=== PATIENT | male | born 2000 | race Caucasian/White ===

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

== ENCOUNTER 2019-08-11 13:30 | Emergency (ER) | payer MEDICAID ==
--- OUTSIDE RECORDS SUMMARY | 2019-08-11 14:01 | XMS REPORT | Continuity of Care Document ---
:2000 External Reference #:[id number] Author Name Stanley Pitts M.D. (transmitted by agent of provider Isidra Murcia) Address [address] [place] [address] Care Team Providers Name Role Phone Miguel Kwon MD Care Team Information Business Services Coordinator [phone] Problems Description No Information Available Social History Type Date Description Comments Sex Unknown Tobacco Use Start: Unknown Never Smoked Cigarettes ETOH Use Denies alcohol use Recreational Drug Use Never Used Drugs Allergies, Adverse Reactions, Alerts Active Allergies Reaction Severity Comments Date Dust Mites 06/29/2017 Cats 06/29/2017 Benadryl 06/29/2017 Medications Active Medications SIG Qnty Indications Ordering Provider Date Xyzal Allergy 24HR 1 by mouth every Unknown 5mg day Tablets Klonopin 1 by mouth every 8 Unknown 2mg Tablets hours as needed Lamictal Unknown 25mg Tablets Flonase Allergy 1 intranasal puff Unknown Relief twice a day 50mcg/Act Suspension Fish Oil 1 by mouth every Unknown 1000mg day Capsules Vitamin D3 daily otc Unknown 2000Unit Tablets Depakote as needed Unknown 250mg Tablets DR Melatonin Unknown 5mg Tablets Immunizations Description No Information Available Vital Signs Date Vital Result Comment 07/23/2019 11:27am Weight 184.00 lb Height 72 inches 6'0" BMI (Body Mass Index) 25.0 kg/m2 BP Systolic 125 mmHg BP Diastolic 81 mmHg Heart Rate 70 /min O2 % BldC Oximetry 100 % Body Temperature 97.9 F Pain Level 0 01/15/2019 1:05pm Weight 187.00 lb Height 72 inches 6'0" BMI (Body Mass Index) 25.4 kg/m2 BP Systolic 122 mmHg BP Diastolic 69 mmHg Heart Rate 75 /min O2 % BldC Oximetry 98 % Body Temperature 98.4 F Pain Level 0 Results Description No Information Available Procedures Description No Information Available Medical Devices Description No Information Available Encounters Type Date Location Provider Dx Diagnosis Office Visit 07/23/2019 Main Office tSanley Pitts M.D. H61.23 Impacted cerumen, 11:00a bilateral J31.0 Chronic rhinitis Assessments Date Code Description Provider 07/23/2019 H61.23 Impacted cerumen, bilateral Stanley Pitts M.D. 07/23/2019 J31.0 Chronic rhinitis Stanley Pitts M.D. Plan of Treatment Future Appointment(s):01/21/2020 2:15 pm - Stanley Pitts M.D. at Main Office Functional Status Description No Information Available Mental Status Description No Information Available Referrals Description No Information Available
--- OUTSIDE RECORDS SUMMARY | 2019-08-11 14:01 | XMS REPORT | Continuity of Care Document ---
:2000 External Reference #:[id number] Author Name Chel Armstrong DO (transmitted by agent of provider Leah Rome) Address [address] [place] [address] Care Team Providers Name Role Phone Nancy Bryant M.D. - Family Medicine Care Team Information Clean Up Supervisor Problems Active Problems Provider Date Autistic disorder of childhood onset Rubén Kwon M.D.,FACP Onset: Seasonal allergic rhinitis Rubén Kwon M.D.,FACP Onset: 05/09/2017 Self-harm Rubén Kwon M.D.,FACP Onset: 05/09/2017 Social History Type Date Description Comments Sex Unknown ETOH Use Never used alcohol Tobacco Use Start: Unknown Patient has never smoked Smoking Status Reviewed: 07/11/19 Patient has never smoked Allergies, Adverse Reactions, Alerts Active Allergies Reaction Severity Comments Date Benadryl hyperactivity 05/09/2017 Medications Active Medications SIG Qnty Indications Ordering Date Provider Multi Vitamin Daily 1 by mouth every 90tabs Nancy Bryant MD 03/07/2018 day Tablets Vitamin D 1 by mouth every 90caps Rubén Noe 02/12/2018 2000Unit other day Larry Kwon,FACP Capsules Fish Oil Take One Capsule 30caps Nancy Bryant MD 02/12/2018 1000mg Capsules By Mouth Daily (Supplement) Doxycycline Hyclate one tab twice a 60caps Nancy Bryant MD 01/09/2018 50mg day routinely for Capsules acne Levocetirizine 1 by mouth every 90tabs Rubén Noe 06/05/2017 Dihydrochloride day Larry Kwon,FACP 5mg Tablets Ear Wax Drops to both ears qd 15ml Rubén Noe 05/09/2017 6.5% for 3 days, Larry Kwon,FACP Solution follow package directions on syringing ears Klonopin one in the 120tabs Rubén Noe 0.5mg Tablets morning, one at Larry Kwon,FACP 3pm and two at bedtime Lamictal one in Am Unknown 25mg Tablets Melatonin 1 tab by mouth Unknown 3mg Capsules every night at bedtime Aripiprazole 1/2 by mouth Unknown 5mg Tablets every day Immunizations CPT Code Status Date Vaccine Lot # [id number] Given 12/12/2017 Influenza Virus Vaccine, Quadrivalent, Split, [id number] Preservative Free Vital Signs Date Vital Result Comment 07/11/2019 3:08pm Height 70 inches 5'10" Weight 184.31 lb With shoes Heart Rate 75 /min BP Systolic 133 mmHg LA sitting BP Diastolic 82 mmHg LA sitting Body Temperature 97.7 F O2 % BldC Oximetry 97 % BMI (Body Mass Index) 26.4 kg/m2 05/06/2019 2:49pm Height 70 inches 5'10" Weight 188.50 lb Heart Rate 74 /min BP Systolic Sitting 140 mmHg Rue reg cuff BP Diastolic Sitting 85 mmHg Rue reg cuff O2 % BldC Oximetry 99 % BMI (Body Mass Index) 27.0 kg/m2 Results Test Date Facility Test Result H/L Range Note CBC No Diff 02/25/2019 [facility] White Blood 5.4 10^3/uL Normal 3.5-10.[address] [place] [address] [phone] Red Blood Count 5.32 10^6/uL Normal 4.18-5.48 Hemoglobin 15.9 g/dL Normal 14.0-18.0 Hematocrit 46 % Normal 42-52 Mean Corpuscular Volume 87 fL Normal 80-94 Mean Corpuscular Hemoglobin 30 pg Normal 27-31 Mean Corpuscular HGB Conc 34 g/dL Normal 31-36 Red Cell Distribution Width 13 % Normal 10.5-15 Platelet Count 258 10^3/uL Normal 150-450 Mean Platelet Volume 7.7 fL Normal 7.4-10.4 Laboratory test 02/25/2019 [facility] Ammonia 50 mcmol/L Normal 16-53 [address] [place] [address] [phone] Comp Metabolic 02/25/2019 [facility] Sodium 140 mmol/L Normal 135-145 Panel [address] [place] [address] [phone] Potassium 4.3 mmol/L Normal 3.5-5.0 Chloride 106 mmol/L Normal 101-111 Co2 Carbon Dioxide 29 mmol/L Normal 22-32 Anion Gap 5 mmol/L Normal 2-11 Glucose 85 mg/dL Normal 70-100 Blood Urea Nitrogen 16 mg/dL Normal 6-24 Creatinine 0.90 mg/dL Normal 0.67-1.17 BUN/Creatinine Ratio 17.8 Normal 8-20 Calcium 10.2 mg/dL Normal 8.6-10.3 Total Protein 7.1 g/dL Normal 6.4-8.9 Albumin 4.8 g/dL Normal 3.2-5.2 Globulin 2.3 g/dL Normal 2-4 Albumin/Globulin Ratio 2.1 Normal 1-3 Total Bilirubin 0.40 mg/dL Normal 0.2-1.0 Alkaline Phosphatase 81 U/L Normal 34-104 Alt 33 U/L Normal 7-52 Ast 17 U/L Normal 13-39 Egfr Non- 108.7 >60 Egfr 131.5 >60 1 Laboratory test 02/25/2019 [facility] Amylase 35 U/L Normal 29 -103 finding [address] [place] [address] [phone] Lipase 10 U/L Low 11.0-82.0 Valproic Acid (Depakene) < 13.0 g/mL Low 50-100 TSH (Thyroid Stim Horm) 4.87 mcIU/mL Normal 0.34-5.60 Prolactin 4.0 ng/mL Normal 1.0-20.0 Vitamin D Total 25(Oh) 51.7 ng/mL High 20-50 2 Lamotrigine (Lamictal) 1.4 g/mL Abnormal 2.5 - 15.0 3 1 Because ethnic data is not always readily available, this report includes an eGFR for both -Americans and non- Americans. The National Kidney Disease Education Program (NKDEP) does not endorse the use of the MDRD equation for patients that are not between the ages of 18 and 70, are , have extremes of body size, muscle mass, or nutritional status, or are non- or non-. According to the National Kidney Foundation, irrespective of diagnosis, the stage of the disease is based on the level of kidney function: Stage Description GFR(mL/min/1.73 m(2)) 1 Kidney damage with normal or decreased GFR 90 2 Kidney damage with mild decrease in GFR 60-89 3 Moderate decrease in GFR 30-59 4 Severe decrease in GFR 15-29 5 Kidney failure <15 (or dialysis) 2 Total 25-Hydroxyvitamin D2 and D3 (25-OH-VitD) <10 ng/mL (severe deficiency) 10-19 ng/mL (mild to moderate deficiency) 20-50 ng/mL (optimum levels) 51-80 ng/mL (increased risk of hypercalciuria) >80 ng/mL (toxicity possible) 3 ADDITIONAL INFORMATION This test was developed and its performance characteristics determined by [facility] in a manner consistent with CLIA requirements. This test has not been cleared or approved by the U.S. Food and Drug Administration. Test Performed by: [facility] [address] [place] [address] Procedures Description No Information Available Medical Devices Description No Information Available Encounters Type Date Location Provider Dx Diagnosis Office Visit 07/11/2019 [facility] Chel Armstrong, R15.9 Full incontinence of 3:00p Medicine - Suite DO feces R Office Visit 05/06/2019 [facility] Nancy Bryant MD Z00.00 Encntr for general 2:20p Medicine - Ccm[facility] adult medical exam w/o abnormal findings Office Visit 02/14/2019 [facility] Nancy Bryant MD F84.0 Autistic disorder 9:20a Medicine - [facility] F80.9 Developmental disorder of speech and language, unspecified Assessments Date Code Description Provider 07/11/2019 R15.9 Full incontinence of feces Chel Armstrong DO 05/06/2019 Z00.00 Encounter for general adult medical examination Nancy Bryant MD without abno 02/14/2019 F84.0 Autistic disorder Nancy Bryant MD 02/14/2019 F80.9 Developmental disorder of speech and language, Nancy Bryant MD unspecified Plan of Treatment Future Appointment(s):05/07/2020 10:00 am - [facility] Chel Armstrong, DOR15.9 Full incontinence of feces Functional Status Description No Information Available Mental Status Description No Information Available Referrals Description No Information Available
--- NOTE | 2019-08-11 14:34 | UC ---
Respiratory Complaint HPI - HPI Summary HPI Summary: 19 yo male presents with sinus symptoms. He has severe autism and is largely non -verbal and lives at a longterm. Metal Coater Operator is with him today and tells me that over the last 2 days pt has had a runny nose, drainage from eyes, post nasal drip, and dry cough. No fevers. Has been taking tylenol OTC with no change. Has been eating and drinking well. - History of Current Complaint Stated Complaint: CONGESTION RESP ISSUE Time Seen by Provider: 08/11/19 14:34 Hx Obtained From: Family/Metal Coater Operator Hx From Patient Unobtainable Due To: Altered Mental Status - Allergies/Home Medications Allergies/Adverse Reactions: Allergies Allergy/AdvReac Type Severity Reaction Status Date / Time diphenhydramine Allergy See Comment Verified 08/11/19 14:50 [From Benadryl] cats Allergy Unknown Uncoded 08/11/19 14:50 Reaction Details dust mites Allergy Unknown Uncoded 08/11/19 14:50 Reaction Details Home Medications: Home Medications ARIPiprazole [Abilify] 0.5 mg PO BID 08/11/19 [History Confirmed 08/11/19] PMH/Surg Hx/FS Hx/Imm Hx - Additional Past Medical History Additional PMH: Autism ADD - Surgical History Surgical History: None - Family History Known Family History: Positive: Unknown - patient has severe cognitive limitations and cannot verbalize PFH - Social History Occupation: Disabled Lives: Detention Alcohol Use: None Substance Use Type: None Smoking Status (MU): Never Smoked Tobacco Have You Smoked in the Last Year: No - Immunization History Most Recent Influenza Vaccination: NOT UTD Vaccination Up to Date: Yes Review of Systems All Other Systems Reviewed And Are Negative: No Constitutional: Positive: Negative Skin: Positive: Negative Eyes: Positive: Drainage ENT: Positive: Nasal Discharge, Sinus Congestion Respiratory: Positive: Cough Cardiovascular: Positive: Negative Gastrointestinal: Positive: Negative Neurological: Positive: Negative Psychological: Positive: Negative Physical Exam - Summary Physical Exam Summary: GENERAL: NAD. WDWN. No pain distress. SKIN: No rashes, sores, lesions, or open wounds. HEENT: Head: AT/NC Eyes: EOM intact. Conjunctiva clear without inflammation or discharge. Ears: Hearing grossly normal. TMs intact, no bulging, erythema, or edema. Nose: Nasal mucosa pink and moist. NTTP maxillary and frontal sinus. Throat: Posterior oropharynx without exudates, erythema, or tonsillar enlargement. Uvula midline. NECK: Supple. Nontender. No lymphadenopathy. CHEST: CTAB. No accessory muscle use. Breathing comfortably and in no distress. CV: RRR. Pulses intact. Cap refill <2seconds NEURO: Alert. PSYCH: Age appropriate behavior. Triage Information Reviewed: Yes Vital Signs: Vital Signs: Temp Pulse Resp BP Pulse Ox 99.8 F 90 18 139/84 98 08/11/19 14:31 08/11/19 14:31 08/11/19 14:31 08/11/19 14:31 08/11/19 14:31 Vital Signs Reviewed: Yes Respiratory Course/Dx - Course Course Of Treatment: Suspect viral illness, but given pt's non-verbal status, his symptoms are difficult to determine. Caretakers prefer that he be on anbx at this time. - Differential Dx/Diagnosis Provider Diagnosis: Rhinosinusitis Discharge ED - Sign-Out/Discharge Documenting (check all that apply): Patient Departure All imaging exams completed and their final reports reviewed: No Studies - Discharge Plan Condition: Stable Disposition: HOME Prescriptions: Amoxicillin PO (*) [Amoxicillin 875 MG (*)] 875 mg PO BID #14 tab Patient Education Materials: Rhinosinusitis (ED) Referrals: Nancy Bryant MD [Primary Care Provider] - Additional Instructions: If you develop a fever, shortness of breath, chest pain, new or worsening symptoms - please call your PCP or go to the ED immediately. - Billing Disposition and Condition Condition: STABLE Disposition: Home - Attestation Statements Provider Attestation: Per institutional requirements, I have reviewed the chart, however, I was not consulted specifically or made aware of this patient by the midlevel provider. I did not personally evaluate, interact with , or disposition this patient.
[2019-08-11 14:53] VITALS: BP 139/84
== END 2019-08-11 15:15 | disposition home or self-care (01) ==
LOC: UCEAST 13:30
DX: J32.9 Chronic sinusitis, unspecified (principal); F84.0 Autistic disorder; Z88.8 Allergy status to other drugs, medicaments and biological substances; Z91.09 Other allergy status, other than to drugs and biological substances
CPT/HCPCS: 99202; G0463